=== PATIENT | male | born 1995 | race African-American/Black ===

== ENCOUNTER 2018-12-02 19:17 | Emergency (ER) | payer OTHER ==
[~2018-12-02] VITALS: Ht 170.2 cm; Wt 108.0 kg
[2018-12-02] MEDS ORDERED: MOBIC7.5 MG PO (20:46)
[2018-12-02 20:52] VITALS: BP 125/86
--- NOTE | 2018-12-03 08:00 | EKG ---
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1995 Requested By: Thompson Vargas Order Number: [id number] MD: Adam Hsu Measurements Intervals [place] Rate: 101 P: 65 VT: 133 QRS: 51 QRSD: 83 T: 34 QT: 316 QTc: 410 Interpretive Statements Sinus tachycardia ST elev, probable normal early repol pattern No previous ECG available for comparison Electronically Signed On 12-03-2018 7:59:59 CDT by Adam Hsu [email or web address] ��������������������������������������������� <ELECTRONICALLY SIGNED> ���������������������������������������� By: Adam Hsu MD ��������������������������������������������� 12/03/18 0759 02 02 Adam Hsu MD /ANNELIESE
== END 2018-12-02 20:54 | disposition home or self-care (01) ==
LOC: ER 19:17
DX: R07.89 Other chest pain (principal); R05 Cough

== ENCOUNTER 2018-12-13 20:42 | Emergency (ER) | payer OTHER ==
[~2018-12-13] VITALS: Ht 170.2 cm; Wt 108.0 kg
[~2018-12-13 20:42] MED LIST: MOBIC7.5 MG PO
[2018-12-13 21:55] LABS: ABSOLUTE NEUTROPHILS 3.7 thou/uL (1.4-8.2); BASOPHILS 0.8 % (0.0-2.0); EOSINOPHILS 11.6 % (0.0-3.0); HEMATOCRIT 48.5 % (42.0-52.0); HEMOGLOBIN 17.1 gm/dL (14.0-18.0); LYMPHOCYTES 36.3 % (24.0-44.0); MCH 32.1 pg (26.0-34.0); MCHC 35.3 g/dL (28.0-37.0); MCV 90.9 fL (80.0-100.0); MONOCYTES 7.1 % (1.0-8.0); PLATELET COUNT 226 thou/uL (150-400); POLYS 44.2 % (36.0-66.0); RBC 5.33 mil/uL (4.50-6.00); RDW 13.3 % (10.5-14.5); WBC 8.4 thou/uL (4.0-11.0)
[2018-12-13 22:02] LABS: ANION GAP 9 mmol/L (7-16); BUN 17 mg/dL (7-18); CALCIUM 9.1 mg/dL (8.5-10.1); CHLORIDE 104 mmol/L (98-107); CO2 26 mmol/L (21-32); CREATININE 1.1 mg/dL (0.7-1.3); GLUCOSE 145 mg/dL (74-106); POTASSIUM 3.8 mmol/L (3.5-5.1); SODIUM 139 mmol/L (136-145)
[2018-12-13 22:12] LABS: ALBUMIN 4.1 g/dL (3.4-5.0); MAGNESIUM 1.7 mg/dL (1.8-2.4); SGOT 33 U/L (15-37); SGPT 33 U/L (30-65); TOTAL BILIRUBIN 0.7 mg/dL (<0.1-1.0); TOTAL PROTEIN 7.7 g/dL (6.4-8.2); TROPONIN-I <0.06 ng/mL (<0.06)
[2018-12-13] MEDS ORDERED: PREDNISONE 20 M20 MG PO (22:14)
[2018-12-13] MEDS ORDERED: TESSALON PERLE100 MG PO (22:14)
[2018-12-13] MEDS ORDERED: VENTOLIN HFA 1818 GM INH (22:14)
[2018-12-13] MEDS ORDERED: ZYRTEC10 MG PO (22:18)
[2018-12-13 22:25] VITALS: BP 129/71
--- NOTE | 2018-12-14 10:31 | EKG ---
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1995 Requested By: Demario Schultz Order Number: [id number] MD: Norris Tovar Measurements Intervals [place] Rate: 110 P: 63 SC: 132 QRS: 43 QRSD: 87 T: 34 QT: 320 QTc: 433 Interpretive Statements Sinus tachycardia Occasional premature ventricular complexes ST elev, probable normal early repol pattern Compared to ECG 12/02/2018 20:03:41 Ventricular premature complex(es) now present Electronically Signed On 12-14-2018 10:31:25 CDT by Norris Tovar [email or web address] ��������������������������������������������� <ELECTRONICALLY SIGNED> ���������������������������������������� By: Norris Tovar MD, [facility] ��������������������������������������������� 12/14/18 1031 35 35 Norris Tovar MD, [facility] /EPI
== END 2018-12-13 22:35 | disposition home or self-care (01) ==
LOC: ER 20:42
PROVIDERS: Emergency Medicine
DX: J45.909 Unspecified asthma, uncomplicated (principal); R00.0 Tachycardia, unspecified

== ENCOUNTER 2020-12-16 09:20 | Emergency (ER) | payer OTHER ==
[~2020-12-16] VITALS: Ht 172.7 cm; Wt 108.9 kg
[~2020-12-16 09:20] MED LIST changes: +PREDNISONE 20 M20 MG PO; +TESSALON PERLE100 MG PO; +VENTOLIN HFA 1818 GM INH; +ZYRTEC10 MG PO
[2020-12-16 09:44] LABS: ABSOLUTE NEUTROPHILS 4.8 thou/uL (1.4-8.2); BASOPHILS 0.9 % (0.0-2.0); EOSINOPHILS 4.3 % (0.0-3.0); HEMATOCRIT 47.8 % (42.0-52.0); HEMOGLOBIN 16.9 gm/dL (14.0-18.0); LYMPHOCYTES 27.4 % (24.0-44.0); MCH 33.1 pg (26.0-34.0); MCHC 35.3 g/dL (28.0-37.0); MCV 93.8 fL (80.0-100.0); MONOCYTES 8.7 % (1.0-8.0); PLATELET COUNT 247 thou/uL (150-400); POLYS 58.7 % (36.0-66.0); RDW 13.5 % (10.5-14.5); WBC 8.2 thou/uL (4.0-11.0)
[2020-12-16 09:53] LABS: ANION GAP 5 mmol/L (7-16); BUN 11 mg/dL (7-18); CALCIUM 8.8 mg/dL (8.5-10.1); CHLORIDE 106 mmol/L (98-107); CO2 29 mmol/L (21-32); CREATININE 1.1 mg/dL (0.7-1.3); GLUCOSE 84 mg/dL (74-106); POTASSIUM 3.8 mmol/L (3.5-5.1); SODIUM 140 mmol/L (136-145)
[2020-12-16 10:03] LABS: ALBUMIN 3.8 g/dL (3.4-5.0); LIPASE 129 U/L (73-393); SGOT 23 U/L (15-37); SGPT 40 U/L (16-63); TOTAL BILIRUBIN 0.8 mg/dL (0.2-1.0); TOTAL PROTEIN 7.7 g/dL (6.4-8.2); TROPONIN-I <0.06 ng/mL (<0.06)
[2020-12-16] MEDS ORDERED: PROAIR HFA8.5 GM INH (10:13)
[2020-12-16] MEDS ORDERED: PREDNISONE 10 M10 MG PO (10:17)
[2020-12-16 10:35] VITALS: BP 145/79
--- NOTE | 2020-12-16 12:00 | EKG ---
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
== END 2020-12-16 10:35 | disposition home or self-care (01) ==
LOC: ER 09:20
PROVIDERS: Emergency Medicine
DX: R07.89 Other chest pain (principal); J45.909 Unspecified asthma, uncomplicated; Z79.899 Other long term (current) drug therapy

== ENCOUNTER 2021-04-07 11:58 | Emergency (ER) | payer OTHER ==
[~2021-04-07] VITALS: Ht 170.2 cm; Wt 104.3 kg
[~2021-04-07 11:58] MED LIST changes: +PREDNISONE 10 M10 MG PO; +PROAIR HFA8.5 GM INH
[2021-04-07 12:40] LABS: ABSOLUTE NEUTROPHILS 4.4 thou/uL (1.4-8.2); BASOPHILS 0.7 % (0.0-2.0); EOSINOPHILS 2.9 % (0.0-3.0); HEMOGLOBIN 17.3 gm/dL (14.0-18.0); LYMPHOCYTES 26.8 % (24.0-44.0); MCH 33.3 pg (26.0-34.0); MCHC 35.3 g/dL (28.0-37.0); MCV 94.3 fL (80.0-100.0); MONOCYTES 9.7 % (1.0-8.0); PLATELET COUNT 261 thou/uL (150-400); POLYS 59.9 % (36.0-66.0); RDW 13.1 % (10.5-14.5); WBC 7.4 thou/uL (4.0-11.0)
[2021-04-07 12:43] LABS: CALCIUM 8.9 mg/dL (8.5-10.1); CREATININE 1.2 mg/dL (0.7-1.3); POTASSIUM 4.1 mmol/L (3.5-5.1)
[2021-04-07 12:49] LABS: ALBUMIN 4.2 g/dL (3.4-5.0); TOTAL BILIRUBIN 1.1 mg/dL (0.2-1.0); TOTAL PROTEIN 8.2 g/dL (6.4-8.2)
[2021-04-07] MEDS ORDERED: MEDROLDOSEPACK PO (13:49)
[2021-04-07 13:50] VITALS: BP 142/98
--- NOTE | 2021-04-11 07:32 | EKG ---
[facility] [place] [address] ELECTROCARDIOGRAM REPORT Name: YA PÉREZ [facility]: [facility] [id number] Admission: 04/07/21 Attend Phys: Discharge: 04/07/21 Date of : [birth year] Report #: [id number] 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1995 Requested By: Darron Ruano Order Number: [id number] MD: Nick Lagos Measurements Intervals [place] Rate: 84 P: 41 DE: 141 QRS: 28 QRSD: 84 T: 17 QT: 352 QTc: 417 Interpretive Statements Sinus rhythm Probable left atrial enlargement ST elev, probable normal early repol pattern Compared to ECG 12/16/2020 09:25:48 ST (T wave) deviation now present Electronically Signed On 04-11-2021 7:32:23 CDT by Nick Lagos [email or web address] <ELECTRONICALLY SIGNED> By: Nick Lagos MD, [facility] 04/11/21 0732 1222 1222 Nick Lagos MD, FACC /EPI
== END 2021-04-07 13:50 | disposition home or self-care (01) ==
LOC: ER 11:58
PROVIDERS: Emergency Medicine
DX: R20.2 Paresthesia of skin (principal); R07.89 Other chest pain; R51.9 Headache, unspecified; J45.909 Unspecified asthma, uncomplicated; Z79.51 Long term (current) use of inhaled steroids; Z79.899 Other long term (current) drug therapy